=== PATIENT | female | born 1945 | race Caucasian/White ===

== ENCOUNTER 2017-03-23 23:36 | Observation (INO) | payer MEDICARE, MEDICAID ==
[~2017-03-23] VITALS: Ht 149.9 cm; Wt 45.8 kg
[~2017-03-23 23:36] MED LIST: ACET-2178 PO; CYAN1TAB43 PO; FERR-63 PO; KEPPSOL PO; MEMA10TA11 PO; MIRT15TA PO; PRED-276 PO
[2017-03-24] MEDS ORDERED: SODIUM CHLORIDE 0.9% 1,000 ML IV ONE (02:28)
[2017-03-24 02:54] LABS: BG BASE EXCESS 1.2 mmol/L (-2.0-2.0); BG CARBOXYHEMOGLOBIN 0.9 % (0.5-1.5); BG DEOXYHEMOGLOBIN 6.8 % (0.0-5.0); BG FRACTION INSPIRED OXYGEN 21; BG HCO3 ACT 26.2 mmol/L (22.0-26.0); BG METHEMOGLOBIN 0.1 % (0.0-1.5); BG OXYGEN SATURATION 93.1 % (92.0-98.5); BG OXYHEMOGLOBIN 92.2 % (94.0-97.0); BG PCO2 42.9 mmHg (35.0-45.0); BG PH 7.404 (7.350-7.450); BG PO2 66.1 mmHg (75.0-100.0); BG SAMPLE SITE RIGHT BRACHIAL; BG VENT MODE ROOM AIR
[2017-03-24 03:00] LABS: BASOPHILS % 0.9 % (0.0-2.0); EOSINOPHILS % 3.5 % (0.0-5.0); HEMATOCRIT. 40.7 % (36.0-48.0); LYMPHOCYTES % 21.6 % (20.0-50.0); MEAN CORPUSCULAR HEMOGLOBIN 30.9 pg (28.0-32.0); MEAN PLATELET VOLUME 9.5 fl (7.4-10.4); MONOCYTES % 7.1 % (2.0-8.0); NEUTROPHILS % 66.9 % (40.0-76.0); PLATELET 212 x1000/uL (130-400); RED BLOOD CELL COUNT 4.52 mill/uL (4.2-5.4); RED CELL DISTRIBUTION WIDTH 12.6 % (11.6-14.6)
[2017-03-24 03:06] LABS: CHLORIDE 102 mEq/L (98-107)
[2017-03-24 03:07] LABS: INR 1.1
[2017-03-24 03:16] LABS: CARBON DIOXIDE 28 mEq/L (21-32)
[2017-03-24 04:34] LABS: CLARITY URINE CLEAR (CLEAR); COLOR URINE YELLOW (YELLOW); GLUCOSE URINE NEGATIVE (NEGATIVE); KETONES URINE NEGATIVE (NEGATIVE); LEUKOCYTE ESTERASE URINE 1+ (NEGATIVE); NITRITE URINE POSITIVE (NEGATIVE); OCCULT BLOOD URINE NEGATIVE (NEGATIVE); PH URINE 6.5 (4.5-8.0); PROTEIN URINE NEGATIVE (NEGATIVE); UROBILINOGEN URINE 0.2 E.U./dL (0.2-1.0)
[2017-03-24] MEDS ORDERED: CEFTRIAXONE 1 G PREMIX 50 ML IV ONE (05:00)
[2017-03-24 09:03] VITALS: BP 120/69
[2017-03-24 11:47] VITALS: BP 139/75
[2017-03-24] MEDS ORDERED: DEXT 5%/0.45% NACL 1000ML 1,000 ML IV SCH (12:25)
[2017-03-24] MEDS ORDERED: CLONIDINE 0.1MG TABLET PO PRN (12:30)
[2017-03-24] MEDS ORDERED: HYDROCODONE/ACETAMINOPHEN 5/325MG TABLET PO PRN (12:30)
[2017-03-24] MEDS ORDERED: LEVETIRACETAM 500MG/5ML CUP PO SCH (12:30)
[2017-03-24] MEDS ORDERED: ACETAMINOPHEN 325MG TABLET PO PRN (12:30)
[2017-03-24] MEDS ORDERED: METHYLPREDNISOLONE SOD SUCC 40 MG/ML VIAL IV SCH (12:30)
[2017-03-24] MEDS ORDERED: IPRATROPIUM/ALBUTEROL 0.5-3(2.5)MG/3ML NEB INH PRN (12:30)
[2017-03-24] MEDS ORDERED: FERROUS SULFATE 325MG TABLET PO SCH (12:30)
[2017-03-24] MEDS ORDERED: MEMANTINE HCL 10MG TABLET PO SCH (12:30)
[2017-03-24] MEDS ORDERED: ENOXAPARIN 40MG/0.4ML SYR SUBCUT SCH (13:00)
[2017-03-24 15:34] LABS: CARBON DIOXIDE 28 mEq/L (21-32); CHLORIDE 105 mEq/L (98-107); CREATINE KINASE 94 IU/L (26-192); TROPONIN I < 0.02 ng/mL (0.00-0.04)
[2017-03-24 15:57] VITALS: BP 139/82
[2017-03-24 16:05] VITALS: BP 140/98
[2017-03-24 16:15] VITALS: BP 139/82
[2017-03-24] MEDS ORDERED: MIRTAZAPINE 15MG TABLET PO SCH (21:00)
== END 2017-03-24 16:45 | disposition home or self-care (01) ==
LOC: ER 23:36 → 8WST 03-24 05:15 → INTOOBSV 03-24 05:15 → ENRESERV 03-24 07:19
PROVIDERS: ADMIT Internal Medicine; ATTEND Internal Medicine
DX: K14.8 Other diseases of tongue (principal); F02.80 Dementia in other diseases classified elsewhere, unspecified severity, without behavioral disturbance, psychotic disturbance, mood disturbance, and anxiety; D64.9 Anemia, unspecified; Z86.73 Personal history of transient ischemic attack (TIA), and cerebral infarction without residual deficits
CPT/HCPCS: 36415; 36600; 70450; 71010; 80048; 80053; 81001; 82375; 82550; 82805; 83605; 84484; 85025; 85610; 87040; 93005; 96361; 96365; 96372; 96375; 99285; G0378; J0696; J1650; J2920; J7030

== ENCOUNTER 2019-06-16 09:13 | Day surgery (SDC) | payer MEDICARE, MEDICAID ==
[~2019-06-16] VITALS: Ht 149.9 cm; Wt 68.2 kg
[~2019-06-16 09:13] MED LIST changes: -MEMA10TA11 PO; +MEMA10TA2 PO
[2019-06-16] MEDS ORDERED: LACTATED RINGERS 1,000 ML IV SCH (09:45)
[2019-06-16] MEDS ORDERED: PROPOFOL 200MG/20ML VIAL IV ONE (12:16)
[2019-06-16] MEDS ORDERED: KETAMINE HCL 50 MG/ML 10ML ONE (12:16)
[2019-06-16] MEDS ORDERED: GLYCOPYRROLATE 0.2 MG/ML 2ML VIAL ONE (12:24)
[2019-06-16] MEDS ORDERED: DIATR MEGLU/DIATRIZOATE SOLN 30ML ONE (14:27)
== END 2019-06-16 16:15 | disposition home or self-care (01) ==
LOC: OR 09:13
PROVIDERS: ATTEND Internal Medicine Gastroenterology
DX: K94.23 Gastrostomy malfunction (principal); R10.13 Epigastric pain; F03.90 Unspecified dementia, unspecified severity, without behavioral disturbance, psychotic disturbance, mood disturbance, and anxiety; R13.12 Dysphagia, oropharyngeal phase; R56.9 Unspecified convulsions; Z79.899 Other long term (current) drug therapy
CPT/HCPCS: 43246; 74018; J2704; J3490; Q9963

== ENCOUNTER 2020-05-05 00:19 | Inpatient (IN) | payer MEDICARE, MEDICAID ==
[~2020-05-05] VITALS: Ht 157.5 cm; Wt 59.2 kg
[~2020-05-05 00:19] MED LIST changes: -ACET-2178 PO; +TOPUD PO
[2020-05-05 01:58] LABS: CHLORIDE 102 mEq/L (98-107)
[2020-05-05 02:03] LABS: BASOPHILS % 0.6 % (0.0-2.0); EOSINOPHILS % 3.8 % (0.0-5.0); HEMATOCRIT. 39.5 % (36.0-48.0); HEMOGLOBIN. 13.3 g/dL (12.0-16.0); LYMPHOCYTES % 26.2 % (20.0-50.0); MEAN CORPUSCULAR HEMOGLOBIN 31.2 pg (28.0-32.0); MEAN CORPUSCULAR VOLUME 92.7 fL (81.0-99.0); MEAN PLATELET VOLUME 9.3 fl (7.4-10.4); MONOCYTES % 7.2 % (2.0-8.0); NEUTROPHILS % 62.2 % (40.0-76.0); PLATELET 188 x1000/uL (130-400); RED BLOOD CELL COUNT 4.26 mill/uL (4.2-5.4)
[2020-05-05 08:00] VITALS: BP 122/69
[2020-05-05] MEDS ORDERED: IPRATROPIUM/ALBUTEROL 0.5-3(2.5)MG/3ML NEB HHN PRN (08:00)
[2020-05-05] MEDS ORDERED: ACETAMINOPHEN 650MG SUPP PR PRN (08:00)
[2020-05-05] MEDS ORDERED: ONDANSETRON HCL 4MG/2ML INJ IV PRN (08:00)
[2020-05-05] MEDS ORDERED: LORAZEPAM 2MG/ML CPJ IV PRN (08:00)
[2020-05-05] MEDS ORDERED: FAMOTIDINE 20MG/2ML VIAL IV SCH (09:00)
[2020-05-05] MEDS: LEVETIRACETAM 500MG PREMIX 100 ML IV SCH ×2 (10:00→21:02)
[2020-05-05] MEDS ORDERED: DEXT 5%/0.45% NACL KCL 20MEQ/L 1,000 ML IV ONE (10:00)
[2020-05-05 10:06] VITALS: BP 124/81
[2020-05-05 12:00] VITALS: BP 126/69
[2020-05-05 16:00] VITALS: BP 114/64
[2020-05-05 20:00] VITALS: BP 121/61
[2020-05-06] VITALS: BP 110/68
[2020-05-06 04:00] VITALS: BP 128/77
[2020-05-06 06:30] LABS: BASOPHILS % 0.3 % (0.0-2.0); HEMATOCRIT. 39.6 % (36.0-48.0); HEMOGLOBIN. 13.6 g/dL (12.0-16.0); LYMPHOCYTES % 13.6 % (20.0-50.0); MEAN CORPUSCULAR HEMOGLOBIN 31.8 pg (28.0-32.0); MEAN CORPUSCULAR VOLUME 92.8 fL (81.0-99.0); MEAN PLATELET VOLUME 9.8 fl (7.4-10.4); NEUTROPHILS % 77.1 % (40.0-76.0); PLATELET 193 x1000/uL (130-400); RED BLOOD CELL COUNT 4.26 mill/uL (4.2-5.4); RED CELL DISTRIBUTION WIDTH 12.9 % (11.6-14.6)
[2020-05-06 07:02] LABS: CHLORIDE 101 mEq/L (98-107)
[2020-05-06 08:00] VITALS: BP 120/51
[2020-05-06] MEDS: LEVETIRACETAM 500MG PREMIX 100 ML IV SCH (08:43)
[2020-05-06] MEDS ORDERED: NYSTATIN POWDER 15GM TOP SCH (10:00)
[2020-05-06 12:11] VITALS: BP 129/81
[2020-05-06 13:07] VITALS: BP 129/81
[2020-05-06 16:00] VITALS: BP 148/81
== END 2020-05-06 15:13 | disposition home or self-care (01) | DRG 395 ==
LOC: ER 00:19 → 6EST 03:47 → ENRESERV 07:00
PROVIDERS: ADMIT Internal Medicine Geriatric Medicine; ATTEND Internal Medicine Geriatric Medicine
PROC: 0D20XUZ Change Feeding Device in Upper Intestinal Tract, External Approach (ICD-10-PCS; principal; 2020-05-05)
DX: K94.23 Gastrostomy malfunction (principal); I10 Essential (primary) hypertension; Z86.73 Personal history of transient ischemic attack (TIA), and cerebral infarction without residual deficits; F02.80 Dementia in other diseases classified elsewhere, unspecified severity, without behavioral disturbance, psychotic disturbance, mood disturbance, and anxiety; R73.9 Hyperglycemia, unspecified; G30.0 Alzheimer's disease with early onset; G40.909 Epilepsy, unspecified, not intractable, without status epilepticus; Y83.3 Surgical operation with formation of external stoma as the cause of abnormal reaction of the patient, or of later complication, without mention of misadventure at the time of the procedure; J42 Unspecified chronic bronchitis; L30.4 Erythema intertrigo; Z79.899 Other long term (current) drug therapy; Z03.818 Encounter for observation for suspected exposure to other biological agents ruled out; Y92.128 Other place in nursing home as the place of occurrence of the external cause
CPT/HCPCS: 36415; 80048; 85025; 87635; 93005; 99285; J1953; J3490

== ENCOUNTER 2020-11-10 20:00 | Inpatient (IN) | payer MEDICARE, MEDICAID ==
[~2020-11-10] VITALS: Ht 162.6 cm; Wt 64.0 kg
[~2020-11-10 20:00] MED LIST changes: +MIRT-118 PO; -MIRT15TA PO; -PRED-276 PO
[2020-11-11 00:08] LABS: BASOPHILS % 0.4 % (0.0-2.0); EOSINOPHILS % 1.9 % (0.0-5.0); HEMATOCRIT. 38.7 % (36.0-48.0); HEMOGLOBIN. 12.7 g/dL (12.0-16.0); LYMPHOCYTES % 22.3 % (20.0-50.0); MEAN CORPUSCULAR HEMOGLOBIN 30.3 pg (28.0-32.0); MEAN CORPUSCULAR VOLUME 92.5 fL (81.0-99.0); MEAN PLATELET VOLUME 10.6 fl (7.4-10.4); NEUTROPHILS % 70.4 % (40.0-76.0); PLATELET 143 x1000/uL (130-400); RED BLOOD CELL COUNT 4.18 mill/uL (4.2-5.4); RED CELL DISTRIBUTION WIDTH 13.1 % (11.6-14.6)
[2020-11-11 00:13] LABS: CHLORIDE 108 mEq/L (98-107)
[2020-11-11] MEDS ORDERED: IOHEXOL-300 100 ML BOTTLE ONE (05:40)
[2020-11-11] MEDS ORDERED: IOHEXOL-350 100 ML BOTTLE ONE (05:40)
[2020-11-11] MEDS ORDERED: VANCOMYCIN 1 G PREMIX 200 ML IV SCH (06:15)
[2020-11-11] MEDS ORDERED: ACETAMINOPHEN 650MG/20.3ML UDC GT PRN (10:15)
[2020-11-11] MEDS ORDERED: IPRATROPIUM/ALBUTEROL 0.5-3(2.5)MG/3ML NEB HHN PRN (10:15)
[2020-11-11 11:13] VITALS: BP 120/61
[2020-11-11] MEDS: CALCIUM CARBONATE 500MG TABLET CHEW GT SCH ×2 (11:49→17:32)
[2020-11-11] MEDS: CHOLECALCIFEROL (D3) 1000 UNIT TABLET GT SCH (11:50)
[2020-11-11] MEDS ORDERED: ENOXAPARIN 40MG/0.4ML SYR SUBCUT SCH (12:00)
[2020-11-11] MEDS: LEVETIRACETAM 500MG/5ML CUP GT SCH (17:32)
[2020-11-11 20:00] VITALS: BP 133/68
[2020-11-12] VITALS: BP 132/67
[2020-11-12] MEDS: CALCIUM CARBONATE 500MG TABLET CHEW GT SCH ×3 (02:15→17:23)
[2020-11-12 04:00] VITALS: BP 130/67
[2020-11-12] MEDS: LEVETIRACETAM 500MG/5ML CUP GT SCH ×2 (05:33→17:23)
[2020-11-12 06:23] LABS: BASOPHILS % 0.7 % (0.0-2.0); EOSINOPHILS % 1.8 % (0.0-5.0); HEMATOCRIT. 38.6 % (36.0-48.0); HEMOGLOBIN. 12.9 g/dL (12.0-16.0); LYMPHOCYTES % 25.8 % (20.0-50.0); MEAN CORPUSCULAR HEMOGLOBIN 31.1 pg (28.0-32.0); MEAN CORPUSCULAR VOLUME 92.9 fL (81.0-99.0); MEAN PLATELET VOLUME 11.3 fl (7.4-10.4); NEUTROPHILS % 62.7 % (40.0-76.0); PLATELET 129 x1000/uL (130-400); RED BLOOD CELL COUNT 4.15 mill/uL (4.2-5.4); RED CELL DISTRIBUTION WIDTH 13.6 % (11.6-14.6)
[2020-11-12 06:53] LABS: CHLORIDE 107 mEq/L (98-107)
[2020-11-12 08:00] VITALS: BP 113/50
[2020-11-12] MEDS: DOCUSATE SODIUM SUGAR FREE 100MG/10ML UDC GT SCH (08:36)
[2020-11-12] MEDS: CHOLECALCIFEROL (D3) 1000 UNIT TABLET GT SCH (08:36)
[2020-11-12] MEDS ORDERED: POTASSIUM CHLORIDE 20MEQ/PACKET GT SCH (09:00)
[2020-11-12] MEDS: APIXABAN 5 MG TABLET PO SCH ×2 (09:18→17:23)
[2020-11-12 12:00] VITALS: BP 133/70
[2020-11-12 13:42] LABS: HEPATITIS B SURFACE ANTIGEN NEGATIVE
[2020-11-12 14:12] LABS: HEPATITIS A AB IGM NEGATIVE (NEGATIVE)
[2020-11-12 16:00] VITALS: BP 136/62
[2020-11-12 20:00] VITALS: BP 156/77
[2020-11-13] VITALS: BP 128/66
[2020-11-13] MEDS: CALCIUM CARBONATE 500MG TABLET CHEW GT SCH ×2 (02:28→10:32)
[2020-11-13 04:00] VITALS: BP 119/69
[2020-11-13] MEDS: LEVETIRACETAM 500MG/5ML CUP GT SCH (06:39)
[2020-11-13 08:00] VITALS: BP 114/58
[2020-11-13] MEDS ORDERED: POTASSIUM CHLORIDE 20MEQ/PACKET PO SCH (08:45)
[2020-11-13] MEDS ORDERED: FUROSEMIDE 20MG/2ML VIAL IVP SCH (08:45)
[2020-11-13] MEDS: DOCUSATE SODIUM SUGAR FREE 100MG/10ML UDC GT SCH (09:13)
[2020-11-13] MEDS: APIXABAN 5 MG TABLET PO SCH (09:13)
[2020-11-13] MEDS: CHOLECALCIFEROL (D3) 1000 UNIT TABLET GT SCH (09:13)
[2020-11-13 10:48] LABS: CHLORIDE 105 mEq/L (98-107)
== END 2020-11-13 17:45 | disposition home health service (06) | DRG 535 ==
LOC: ER 20:00 → 6EST 11-11 06:19 → ENRESERV 11-11 08:28
PROVIDERS: ADMIT Internal Medicine Nephrology; ATTEND Internal Medicine Nephrology
DX: S72.091A Other fracture of head and neck of right femur, initial encounter for closed fracture (principal); S72.092A Other fracture of head and neck of left femur, initial encounter for closed fracture; I82.509 Chronic embolism and thrombosis of unspecified deep veins of unspecified lower extremity; N13.39 Other hydronephrosis; M81.0 Age-related osteoporosis without current pathological fracture; M62.49 Contracture of muscle, multiple sites; D69.6 Thrombocytopenia, unspecified; E86.0 Dehydration; E87.6 Hypokalemia; F02.80 Dementia in other diseases classified elsewhere, unspecified severity, without behavioral disturbance, psychotic disturbance, mood disturbance, and anxiety; G30.9 Alzheimer's disease, unspecified; G40.909 Epilepsy, unspecified, not intractable, without status epilepticus; R74.01 Elevation of levels of liver transaminase levels; X58.XXXA Exposure to other specified factors, initial encounter; I89.0 Lymphedema, not elsewhere classified; K76.0 Fatty (change of) liver, not elsewhere classified; J42 Unspecified chronic bronchitis; Z74.01 Bed confinement status; Z86.73 Personal history of transient ischemic attack (TIA), and cerebral infarction without residual deficits; Z93.1 Gastrostomy status; Z79.899 Other long term (current) drug therapy; Y93.89 Activity, other specified; Y92.89 Other specified places as the place of occurrence of the external cause; Y99.8 Other external cause status; Z20.822 Contact with and (suspected) exposure to COVID-19
CPT/HCPCS: 36415; 71045; 71275; 73700; 76700; 80048; 80053; 83880; 84484; 85025; 85027; 86705; 86709; 86803; 87340; 87426; 93005; 93970; 96372; 99285; J1650; J1940; J3370; Q9967

== ENCOUNTER 2021-08-05 10:27 | Emergency (ER) | payer MEDICARE, MEDICAID ==
[~2021-08-05] VITALS: Ht 160 cm; Wt 57.0 kg
[~2021-08-05 10:27] MED LIST changes: +ERGO1250 PO; +FURO20TA4 PO
[2021-08-05] MEDS ORDERED: DIATR MEGLU/DIATRIZOATE SOLN 30ML PO ONE (12:00)
[2021-08-05] MEDS ORDERED: BARIUM SULFATE(VOLUMEN) 450 ML ORAL.SUSP ONE (12:54)
[2021-08-05] MEDS ORDERED: DIATR MEGLU/DIATRIZOATE SOLN 30ML ONE (12:55)
[2021-08-05 16:00] VITALS: BP 144/73
== END 2021-08-05 16:32 | disposition home or self-care (01) ==
LOC: ER 10:41
DX: K94.23 Gastrostomy malfunction (principal); Z86.59 Personal history of other mental and behavioral disorders; Z86.73 Personal history of transient ischemic attack (TIA), and cerebral infarction without residual deficits; Z98.890 Other specified postprocedural states
CPT/HCPCS: 43762; 74018; 93005; 99284; Q9963; 43760; 99283

== ENCOUNTER 2021-08-08 23:52 | Inpatient (IN) | payer MEDICARE, MEDICAID ==
[~2021-08-08] VITALS: Ht 154.9 cm; Wt 56.7 kg
[2021-08-09] MEDS ORDERED: SODIUM CHLORIDE 0.9% 1,000 ML IV ONE (02:00)
[2021-08-09 02:46] LABS: CHLORIDE 111 mEq/L (98-107)
[2021-08-09 02:47] LABS: BASOPHILS % 0.5 % (0.0-2.0); EOSINOPHILS % 1.7 % (0.0-5.0); HEMATOCRIT. 38.1 % (36.0-48.0); HEMOGLOBIN. 12.7 g/dL (12.0-16.0); LYMPHOCYTES % 23.8 % (20.0-50.0); MEAN CORPUSCULAR HEMOGLOBIN 30.9 pg (28.0-32.0); MEAN CORPUSCULAR VOLUME 92.2 fL (81.0-99.0); MEAN PLATELET VOLUME 10.4 fl (7.4-10.4); MONOCYTES % 6.1 % (2.0-8.0); NEUTROPHILS % 67.9 % (40.0-76.0); PLATELET 123 x1000/uL (130-400); RED BLOOD CELL COUNT 4.13 mill/uL (4.2-5.4)
[2021-08-09] MEDS ORDERED: ONDANSETRON HCL 4MG/2ML INJ IV PRN (04:00)
[2021-08-09] MEDS ORDERED: ACETAMINOPHEN 650MG SUPP PR PRN (04:00)
[2021-08-09] MEDS: SODIUM CHLORIDE 0.45% 1,000 ML IV SCH ×2 (04:35→14:30)
[2021-08-09 05:49] LABS: CHLORIDE 114 mEq/L (98-107)
[2021-08-09 09:00] VITALS: BP 149/59
[2021-08-09 10:21] VITALS: BP 149/59
[2021-08-09 12:00] VITALS: BP 105/46
[2021-08-09] MEDS ORDERED: LORA2ORA5 PO (13:45)
[2021-08-09] MEDS ORDERED: POTA25TA8 PO (13:45)
[2021-08-09] MEDS ORDERED: APIX2.5T PO (13:45)
[2021-08-09] MEDS ORDERED: CALC-3 MT (13:45)
[2021-08-09 16:00] VITALS: BP 114/58
[2021-08-09 20:00] VITALS: BP 105/54
[2021-08-09] MEDS: DEXT 5%/0.45% NACL 1000ML 1,000 ML IV SCH (23:33)
[2021-08-10] VITALS: BP 88/46
[2021-08-10 04:00] VITALS: BP 125/60
[2021-08-10 06:38] LABS: CHLORIDE 112 mEq/L (98-107)
[2021-08-10 08:00] VITALS: BP 126/71
[2021-08-10] MEDS ORDERED: POTASSIUM CHLORIDE INJ 40 MEQ in DEXT 5% WATER 500 ML IV NR (10:30)
[2021-08-10 10:42] LABS: INR 1.2; PROTHROMBIN TIME 12.4 sec (9.6-11.0)
[2021-08-10 12:00] VITALS: BP 105/57
[2021-08-10] MEDS: DEXT 5%/0.45% NACL 1000ML 1,000 ML IV SCH (12:57)
[2021-08-10 16:00] VITALS: BP 118/71
[2021-08-10 20:00] VITALS: BP 107/56
[2021-08-11] VITALS: BP 134/59
[2021-08-11 04:00] VITALS: BP 118/57
[2021-08-11] MEDS ORDERED: LIDOCAINE HCL 1% 10 MG/ML 10ML VIAL ONE (07:40)
[2021-08-11] MEDS: DEXT 5%/0.45% NACL 1000ML 1,000 ML IV SCH ×2 (09:12→23:17)
[2021-08-11] MEDS ORDERED: LEVETIRACETAM 500 MG in SODIUM CHLORIDE 0.9% 100 ML IV SCH (10:00)
[2021-08-11] MEDS ORDERED: FLUCONAZOLE/NS(NEO) 2MG/ML IVPB IV SCH (10:00)
[2021-08-11] MEDS ORDERED: LEVETIRACETAM 500MG in SODIUM CHLORIDE 0.9% 100ML IV SCH (11:00)
[2021-08-11 11:08] LABS: BASOPHILS % 0.3 % (0.0-2.0); EOSINOPHILS % 0.2 % (0.0-5.0); HEMATOCRIT. 39.3 % (36.0-48.0); HEMOGLOBIN. 12.8 g/dL (12.0-16.0); LYMPHOCYTES % 8.4 % (20.0-50.0); MEAN CORPUSCULAR HEMOGLOBIN 30.1 pg (28.0-32.0); MEAN CORPUSCULAR VOLUME 92.9 fL (81.0-99.0); MEAN PLATELET VOLUME 10.5 fl (7.4-10.4); MONOCYTES % 5.7 % (2.0-8.0); NEUTROPHILS % 85.4 % (40.0-76.0); PLATELET 144 x1000/uL (130-400); RED BLOOD CELL COUNT 4.23 mill/uL (4.2-5.4); RED CELL DISTRIBUTION WIDTH 14.4 % (11.6-14.6)
[2021-08-11 11:21] LABS: CHLORIDE 110 mEq/L (98-107)
[2021-08-11 11:26] LABS: PHOSPHORUS 2.7 mg/dL (2.5-4.9)
[2021-08-11 11:27] LABS: INR 1.1
[2021-08-11] MEDS ORDERED: FLUCONAZOLE 100MG/50ML in BAG IV SCH (11:30)
[2021-08-11 12:00] VITALS: BP 107/53
[2021-08-11] MEDS: LEVETIRACETAM 500MG PREMIX 100 ML IV SCH ×2 (12:05→20:05)
[2021-08-11] MEDS: NYSTATIN/TRIAMCIN CREAM 15GM TOP SCH ×2 (12:49→16:40)
[2021-08-11] MEDS ORDERED: FENTANYL CITRATE/PF 50MCG/ML 2ML VIAL ONE (13:45)
[2021-08-11] MEDS ORDERED: MIDAZOLAM HCL 5 MG/5 ML VIAL ONE (13:45)
[2021-08-11] MEDS ORDERED: MIDAZOLAM HCL 5 MG/5 ML VIAL IV PRN (13:59)
[2021-08-11] MEDS ORDERED: FENTANYL CITRATE/PF 50MCG/ML 2ML VIAL IV PRN (14:00)
[2021-08-11 16:00] VITALS: BP 138/81
[2021-08-11] MEDS: SUCRALFATE 1 G/10 ML UDC GT SCH ×2 (17:20→23:17)
[2021-08-11] MEDS: PANTOPRAZOLE SODIUM 40 MG/VIAL IV SCH (17:20)
[2021-08-11 20:00] VITALS: BP 148/67
[2021-08-12] VITALS: BP 140/64
[2021-08-12 04:00] VITALS: BP 126/62
[2021-08-12] MEDS: METOCLOPRAMIDE HCL 10MG/2ML VIAL IV SCH ×4 (05:48→23:53)
[2021-08-12] MEDS: SUCRALFATE 1 G/10 ML UDC GT SCH ×4 (05:48→23:53)
[2021-08-12] MEDS: PANTOPRAZOLE SODIUM 40 MG/VIAL IV SCH ×2 (05:48→18:09)
[2021-08-12 06:31] LABS: BASOPHILS % 0.7 % (0.0-2.0); EOSINOPHILS % 2.7 % (0.0-5.0); HEMATOCRIT. 38.1 % (36.0-48.0); HEMOGLOBIN. 12.8 g/dL (12.0-16.0); LYMPHOCYTES % 18.1 % (20.0-50.0); MEAN CORPUSCULAR VOLUME 92.5 fL (81.0-99.0); MEAN PLATELET VOLUME 10.3 fl (7.4-10.4); MONOCYTES % 7.2 % (2.0-8.0); NEUTROPHILS % 71.3 % (40.0-76.0); PLATELET 116 x1000/uL (130-400); RED BLOOD CELL COUNT 4.11 mill/uL (4.2-5.4); RED CELL DISTRIBUTION WIDTH 14.4 % (11.6-14.6)
[2021-08-12 06:49] LABS: CHLORIDE 111 mEq/L (98-107)
[2021-08-12 08:00] VITALS: BP 116/75
[2021-08-12] MEDS: LEVETIRACETAM 500MG PREMIX 100 ML IV SCH (08:45)
[2021-08-12] MEDS ORDERED: POTASSIUM CHLORIDE 20MEQ/PACKET PO NR (09:00)
[2021-08-12] MEDS ORDERED: POTASSIUM CHLORIDE 10MEQ TABLET SR PO ONE (09:30)
[2021-08-12] MEDS ORDERED: FUROSEMIDE 20MG/2ML VIAL IVP NR (09:30)
[2021-08-12] MEDS: NYSTATIN/TRIAMCIN CREAM 15GM TOP SCH ×3 (09:41→17:00)
[2021-08-12] MEDS ORDERED: LEVETIRACETAM 500MG/5ML CUP GT SCH (10:00)
[2021-08-12 12:00] VITALS: BP 112/57
[2021-08-12] MEDS: KCL 20MEQ/100ML PREMIX 100 ML IV SCH ×2 (13:25→18:00)
[2021-08-12 16:00] VITALS: BP 120/96
[2021-08-12 20:00] VITALS: BP 117/44
[2021-08-12] MEDS: LEVETIRACETAM 500MG/5ML CUP GT SCH (21:05)
[2021-08-13] VITALS: BP 116/62
[2021-08-13 04:00] VITALS: BP 118/51
[2021-08-13] MEDS: SUCRALFATE 1 G/10 ML UDC GT SCH ×2 (05:00→15:49)
[2021-08-13] MEDS: PANTOPRAZOLE SODIUM 40 MG/VIAL IV SCH (05:00)
[2021-08-13] MEDS: METOCLOPRAMIDE HCL 10MG/2ML VIAL IV SCH ×2 (05:01→15:49)
[2021-08-13 08:00] VITALS: BP 122/53
[2021-08-13] MEDS: NYSTATIN/TRIAMCIN CREAM 15GM TOP SCH ×3 (10:16→17:13)
[2021-08-13] MEDS: LEVETIRACETAM 500MG/5ML CUP GT SCH (10:16)
[2021-08-13 16:00] VITALS: BP 123/56
[2021-08-13 16:37] VITALS: BP 108/63
[2021-08-13 17:24] VITALS: BP 122/59
== END 2021-08-13 17:25 | disposition home or self-care (01) | DRG 393 ==
LOC: ER 08-09 00:04 → 6EST 08-09 04:13 → ENRESERV 08-09 08:28 → 6EST 08-09 10:11
PROVIDERS: ADMIT Internal Medicine Geriatric Medicine; ATTEND Internal Medicine Geriatric Medicine
PROC: 02HV33Z Insertion of Infusion Device into Superior Vena Cava, Percutaneous Approach (ICD-10-PCS; principal; 2021-08-11)
PROC: B5181ZA Fluoroscopy of Superior Vena Cava using Low Osmolar Contrast, Guidance (ICD-10-PCS; 2021-08-11)
PROC: B548ZZA Ultrasonography of Superior Vena Cava, Guidance (ICD-10-PCS; 2021-08-11)
PROC: 0D20XUZ Change Feeding Device in Upper Intestinal Tract, External Approach (ICD-10-PCS; 2021-08-11)
PROC: 0DB68ZX Excision of Stomach, Via Natural or Artificial Opening Endoscopic, Diagnostic (ICD-10-PCS; 2021-08-11)
DX: K94.23 Gastrostomy malfunction (principal); J69.0 Pneumonitis due to inhalation of food and vomit; E87.0 Hyperosmolality and hypernatremia; E44.1 Mild protein-calorie malnutrition; I82.501 Chronic embolism and thrombosis of unspecified deep veins of right lower extremity; E86.0 Dehydration; F02.80 Dementia in other diseases classified elsewhere, unspecified severity, without behavioral disturbance, psychotic disturbance, mood disturbance, and anxiety; G30.9 Alzheimer's disease, unspecified; E87.6 Hypokalemia; I10 Essential (primary) hypertension; G40.909 Epilepsy, unspecified, not intractable, without status epilepticus; J42 Unspecified chronic bronchitis; K25.9 Gastric ulcer, unspecified as acute or chronic, without hemorrhage or perforation; R13.10 Dysphagia, unspecified; Z20.822 Contact with and (suspected) exposure to COVID-19; Z68.23 Body mass index [BMI] 23.0-23.9, adult; Z95.828 Presence of other vascular implants and grafts; B35.4 Tinea corporis
CPT/HCPCS: 36415; 36573; 71045; 80048; 80053; 83735; 84100; 84443; 84484; 85025; 87426; 88305; 88312; 88313; 93005; 93306; 93970; 99285; C1725; C9113; J1450; J1940; J1953; J2250; J2765; J3010; J3480; J3490; J7030; J7040; J7050; J7060

== ENCOUNTER 2021-10-07 13:46 | Inpatient (IN) | payer MEDICARE, MEDICAID ==
[~2021-10-07] VITALS: Ht 152.4 cm; Wt 59.9 kg
[~2021-10-07 13:46] MED LIST changes: +APIX2.5T PO; +CALC-3 MT; +LORA2ORA5 PO; +POTA25TA8 PO
[2021-10-07] MEDS ORDERED: SODIUM CHLORIDE 0.9% 1,000 ML IV ONE (15:45)
[2021-10-07 17:36] LABS: CHLORIDE 106 mEq/L (98-107)
[2021-10-07 17:37] LABS: BASOPHILS % 0.7 % (0.0-2.0); EOSINOPHILS % 1.8 % (0.0-5.0); HEMATOCRIT. 41.4 % (36.0-48.0); HEMOGLOBIN. 13.4 g/dL (12.0-16.0); LYMPHOCYTES % 32.5 % (20.0-50.0); MEAN CORPUSCULAR HEMOGLOBIN 29.9 pg (28.0-32.0); MEAN CORPUSCULAR VOLUME 92.6 fL (81.0-99.0); MEAN PLATELET VOLUME 9.9 fl (7.4-10.4); MONOCYTES % 6.6 % (2.0-8.0); NEUTROPHILS % 58.4 % (40.0-76.0); PLATELET 165 x1000/uL (130-400); RED BLOOD CELL COUNT 4.47 mill/uL (4.2-5.4); RED CELL DISTRIBUTION WIDTH 13.7 % (11.6-14.6)
[2021-10-07] MEDS ORDERED: DEXT 5%/0.45% NACL KCL 20MEQ/L 1,000 ML IV SCH (21:15)
[2021-10-07] MEDS ORDERED: ENOXAPARIN 40MG/0.4ML SYR SUBCUT SCH (21:15)
[2021-10-07] MEDS ORDERED: ONDANSETRON HCL 4MG/2ML INJ IV PRN (21:15)
[2021-10-07] MEDS ORDERED: LORAZEPAM 2MG/ML CPJ IV PRN (21:15)
[2021-10-07] MEDS ORDERED: ACETAMINOPHEN 650MG SUPP PR PRN (21:15)
[2021-10-07] MEDS ORDERED: ENOXAPARIN 30MG/0.3ML SYR SUBCUT SCH (22:00)
[2021-10-08] MEDS: LEVETIRACETAM 500MG PREMIX 100 ML IV SCH ×2 (04:01→08:36)
[2021-10-08 06:09] LABS: CHLORIDE 111 mEq/L (98-107)
[2021-10-08 06:32] LABS: BASOPHILS % 0.4 % (0.0-2.0); EOSINOPHILS % 0.8 % (0.0-5.0); HEMATOCRIT. 38.2 % (36.0-48.0); HEMOGLOBIN. 12.9 g/dL (12.0-16.0); LYMPHOCYTES % 18.5 % (20.0-50.0); MEAN CORPUSCULAR HEMOGLOBIN 31.3 pg (28.0-32.0); MEAN CORPUSCULAR VOLUME 92.9 fL (81.0-99.0); MEAN PLATELET VOLUME 10.7 fl (7.4-10.4); MONOCYTES % 7.3 % (2.0-8.0); PLATELET 158 x1000/uL (130-400); RED BLOOD CELL COUNT 4.11 mill/uL (4.2-5.4); RED CELL DISTRIBUTION WIDTH 13.8 % (11.6-14.6)
[2021-10-08] MEDS ORDERED: FAMOTIDINE 20MG/2ML VIAL IV SCH (09:00)
[2021-10-08] MEDS ORDERED: LIDOCAINE HCL 1% 20ML VIAL (Pyxis) INJ ONE (10:35)
[2021-10-08] MEDS ORDERED: LIDOCAINE HCL 2% JELLY 5ML ONE ×2 (10:36→11:12)
[2021-10-08] MEDS ORDERED: IOHEXOL-300 50 ML BOTTLE IV ONE (10:45)
[2021-10-08 12:00] VITALS: BP 129/55
[2021-10-08 16:00] VITALS: BP 109/50
[2021-10-08 18:49] VITALS: BP 129/55
[2021-10-08 19:11] VITALS: BP 129/55
== END 2021-10-08 19:35 | disposition home or self-care (01) | DRG 394 ==
LOC: ER 13:46 → 6EST 18:07 → ENRESERV 10-08 09:31
PROVIDERS: ADMIT Internal Medicine Geriatric Medicine; ATTEND Internal Medicine Geriatric Medicine
PROC: 0DH63UZ Insertion of Feeding Device into Stomach, Percutaneous Approach (ICD-10-PCS; principal; 2021-10-08)
PROC: BD12ZZZ Fluoroscopy of Stomach (ICD-10-PCS; 2021-10-08)
DX: Z43.1 Encounter for attention to gastrostomy (principal); E44.1 Mild protein-calorie malnutrition; M81.0 Age-related osteoporosis without current pathological fracture; G30.9 Alzheimer's disease, unspecified; E86.0 Dehydration; Z20.822 Contact with and (suspected) exposure to COVID-19; F02.80 Dementia in other diseases classified elsewhere, unspecified severity, without behavioral disturbance, psychotic disturbance, mood disturbance, and anxiety; Z74.01 Bed confinement status; Z86.718 Personal history of other venous thrombosis and embolism; M24.50 Contracture, unspecified joint; Z68.25 Body mass index [BMI] 25.0-25.9, adult
CPT/HCPCS: 36415; 36598; 49450; 71045; 80048; 80053; 85025; 87426; 93005; 99285; C1892; J1650; J1953; J3490; J7030; Q9967

== ENCOUNTER 2022-08-13 11:40 | Emergency (ER) | payer MEDICARE, MEDICAID ==
[~2022-08-13] VITALS: Ht 172.7 cm; Wt 62.0 kg
[~2022-08-13 11:40] MED LIST changes: +POTA25TA PO; -POTA25TA8 PO
[2022-08-13] MEDS ORDERED: LEVETIRACETAM 500 MG in SODIUM CHLORIDE 0.9% 100 ML IV STA (12:22)
[2022-08-13] MEDS ORDERED: LEVETIRACETAM 500MG PREMIX 100 ML IV NR (12:30)
[2022-08-13 12:44] LABS: BASOPHILS % 0.4 % (0.0-2.0); EOSINOPHILS % 0.4 % (0.0-5.0); HEMATOCRIT. 41.2 % (36.0-48.0); HEMOGLOBIN. 13.4 g/dL (12.0-16.0); LYMPHOCYTES % 10.2 % (20.0-50.0); MEAN CORPUSCULAR VOLUME 94.9 fL (81.0-99.0); MEAN PLATELET VOLUME 10.5 fl (7.4-10.4); MONOCYTES % 5.2 % (2.0-8.0); NEUTROPHILS % 83.8 % (40.0-76.0); PLATELET 113 x1000/uL (130-400); RED BLOOD CELL COUNT 4.34 mill/uL (4.2-5.4); RED CELL DISTRIBUTION WIDTH 14.3 % (11.6-14.6)
[2022-08-13 12:54] LABS: CHLORIDE 107 mEq/L (98-107)
[2022-08-13 13:07] LABS: ETHANOL BLOOD < 10 mg/dL
[2022-08-13] MEDS ORDERED: SODIUM CHLORIDE 0.9% 1,000 ML IV ONE (15:15)
[2022-08-13] MEDS ORDERED: ACETAMINOPHEN 650MG/20.3ML UDC GT PRN (17:30)
[2022-08-13] MEDS ORDERED: CLONIDINE 0.1MG TABLET PO PRN (17:30)
[2022-08-13] MEDS ORDERED: LORAZEPAM 2MG/ML CPJ IV PRN (17:30)
[2022-08-13] MEDS ORDERED: ONDANSETRON HCL 4MG/2ML INJ IV PRN (17:30)
[2022-08-13] MEDS ORDERED: APIX2.5T PO (17:47)
[2022-08-13] MEDS ORDERED: IPRATROPIUM/ALBUTEROL 0.5-3(2.5)MG/3ML NEB HHN SCH (18:00)
[2022-08-13] MEDS ORDERED: APIXABAN 2.5 MG TABLET GT SCH (18:00)
[2022-08-13 18:25] VITALS: BP 158/72
[2022-08-13] MEDS ORDERED: LACTULOSE 20G/30ML UDC PO PRN (21:00)
[2022-08-13] MEDS ORDERED: LEVETIRACETAM 500MG/5ML CUP GT SCH (21:00)
[2022-08-14] MEDS ORDERED: DOCUSATE SODIUM SUGAR FREE 100MG/10ML UDC GT SCH (09:00)
== END 2022-08-13 18:26 | disposition home or self-care (01) ==
LOC: ER 11:40
DX: G40.909 Epilepsy, unspecified, not intractable, without status epilepticus (principal); I82.509 Chronic embolism and thrombosis of unspecified deep veins of unspecified lower extremity; E86.0 Dehydration; R74.01 Elevation of levels of liver transaminase levels; M62.48 Contracture of muscle, other site; G30.9 Alzheimer's disease, unspecified; F02.80 Dementia in other diseases classified elsewhere, unspecified severity, without behavioral disturbance, psychotic disturbance, mood disturbance, and anxiety; Z93.1 Gastrostomy status
CPT/HCPCS: 36415; 70450; 71045; 80053; 80320; 82962; 85025; 96374; 99285; J1953; J7030; J7050; G0480

== ENCOUNTER 2023-02-06 09:26 | Emergency (ER) | payer MEDICARE, MEDICAID ==
[~2023-02-06] VITALS: Ht 160 cm; Wt 50.0 kg
[2023-02-06] MEDS ORDERED: SODIUM CHLORIDE 0.9% 1,000 ML IV STA (13:16)
[2023-02-06] MEDS ORDERED: DIATR MEGLU/DIATRIZOATE SOLN 30ML ONE (14:08)
[2023-02-06 21:01] VITALS: BP 111/61
== END 2023-02-06 21:04 | disposition home or self-care (01) ==
LOC: ER 09:26
DX: Z93.1 Gastrostomy status (principal)
CPT/HCPCS: 36568; 74018; 99284; J7030; Q9963